=== PATIENT | female | born 1995 | race Caucasian/White ===

== ENCOUNTER 2023-05-10 20:55 | Inpatient (IN) | payer BC ==
[2023-05-10 22:07] VITALS: BMI 25.8
[2023-05-10 23:27] LABS: Hematocrit 39.2 % (34.9-44.5); Hemoglobin 13.3 g/dL (12.0-15.5); Mean Corpuscular HGB CONC 33.9 g/dL (32.0-36.0); Mean Corpuscular Hemoglobin 32.4 pg (27.0-33.0); Mean Corpuscular Volume 95.6 fl (81.6-98.3); Mean Platelet Volume 11.8 fl (7.4-10.4); Platelet Count 171 10x3/uL (150-450); RBC Distribution Width 12.9 % (11.5-14.5)
[2023-05-10 23:52] LABS: HBSAg Index 0.18 S/CO (0-0.99); Hep B Surf Ag - L&D Non-Reactive S/CO (NonReactive)
[2023-05-10 23:53] LABS: Syphilis Antibody Nonreactive (Nonreactive); Syphilis Antibody Index 0.03 S/CO (<1.00 Non-Reactive)
[2023-05-11] MEDS ORDERED: Lidocaine 1% (PF) 30 ML VIAL ONE (04:22)
[2023-05-11] MEDS ORDERED: Oxytocin 30 units/NS 500 ML 500 ML ONE (04:23)
[2023-05-11] MEDS ORDERED: Lidocaine 1% (PF) 30 ML VIAL SC PRN (04:45)
[2023-05-11] MEDS ORDERED: hydrALAZINE 20 MG/ML VIAL SLOW IVP PRN ×2 (04:45→09:07)
[2023-05-11] MEDS ORDERED: Ondansetron PF 4 MG/2 ML Vial IVP PRN (04:45)
[2023-05-11] MEDS ORDERED: Oxytocin 30 units/NS 500 ML 500 ML IVPB SCH (04:45)
[2023-05-11] MEDS ORDERED: Lactated Ringer's 1,000 ML IV SCH (04:45)
[2023-05-11] MEDS ORDERED: Promethazine HCl 25 MG/ML VIAL IM PRN (04:45)
[2023-05-11] MEDS ORDERED: Oxytocin 30 units/NS 500 ML 500 ML IV SCH ×2 (04:45→09:07)
[2023-05-11] MEDS ORDERED: Lanolin Ointment 7 GM TUBE TOP PRN (09:07)
[2023-05-11] MEDS ORDERED: Bisacodyl 10 MG SUPP PR PRN (09:07)
[2023-05-11] MEDS ORDERED: Milk Of Magnesia 30 ML UDCUP PO PRN (09:07)
[2023-05-11] MEDS ORDERED: Benzocaine-Menthol 82.5 ML CAN TOP PRN (09:07)
[2023-05-11] MEDS ORDERED: HYDROcodone/Acetaminophen 5/325 mg Tablet PO PRN ×2 (09:07)
[2023-05-11] MEDS ORDERED: Methylergonovine 0.2 MG/ML VIAL ONE (09:58)
[2023-05-11] MEDS ORDERED: Prenatal Vitamin 1 TAB PO SCH (10:30)
[2023-05-11] MEDS ORDERED: Docusate 100 MG CAP PO SCH (10:30)
[2023-05-11] MEDS ORDERED: Ferrous Sulfate 325 MG TAB PO SCH (10:30)
[2023-05-11 10:34] LABS: Platelet Count 144 10x3/uL (150-450)
[2023-05-11 10:35] LABS: #Eosinphils 0.1 10x3/uL (0.0-0.5); #Monocytes 1.9 10x3/uL (0.0-1.1); #Neutrophils 20.8 10x3/uL (1.5-8.4); %Basophils 0.2 % (0.0-2.0); %Eosinophils 0.3 % (0.0-6.0); %Lymphocytes 3.8 % (18.0-47.0); %Monocytes 7.8 % (0.0-10.0); %Neutrophils 87.3 % (40.0-75.0); Hematocrit 29.9 % (34.9-44.5); Hemoglobin 10.3 g/dL (12.0-15.5); Mean Corpuscular HGB CONC 34.4 g/dL (32.0-36.0); Mean Corpuscular Hemoglobin 33.1 pg (27.0-33.0); Mean Corpuscular Volume 96.1 fl (81.6-98.3); Mean Platelet Volume 12.2 fl (7.4-10.4); Platelet Count 142 10x3/uL (150-450); RBC Distribution Width 12.9 % (11.5-14.5); Red Blood Cell (RBC) Count 3.11 10x6/uL (3.90-5.03); White Blood Cell (WBC) Count 23.8 10x3/uL (3.5-10.5)
[2023-05-11 10:54] LABS: Fibrinogen 302 mg/dL (220-504); INR-International Normal Ratio 0.9; PTT 26.4 sec (22.0-33.0); Prothrombin Time 9.9 sec (9.5-12.1)
[2023-05-11 10:56] LABS: D-Dimer Test Greater than 35.20 mg/L FEU (0.19-0.50)
[2023-05-11 11:02] LABS: Band 8 % (5-11); Lymphocytes 5 % (21-51); Monocytes 4 % (0-10); Neutrophil 83 % (42-75)
[2023-05-11 11:03] LABS: Anisocytosis SLIGHT = 6-15 cells (100X) (0-5/hpf); Macrocytosis SLIGHT = 6-15 cells (100X) (0-5/hpf)
[2023-05-11 11:04] LABS: Hypochromia SLIGHT = 6-15 cells (100X) (0-5/hpf); Platelet Adequacy Comment Appears Adequate
[2023-05-11] MEDS: Ibuprofen 800 MG TAB PO SCH ×2 (11:36→17:43)
[2023-05-11] MEDS ORDERED: Boostrix 0.5 ML (Tdap) VIAL (>/=7 yrs of age) IM ONE (16:00)
[2023-05-11] MEDS: Ferrous Sulfate 325 MG TAB PO SCH (17:43)
[2023-05-11] MEDS: Docusate 100 MG CAP PO SCH (20:41)
[2023-05-12] MEDS: Ibuprofen 800 MG TAB PO SCH ×2 (01:05→09:18)
[2023-05-12 07:58] VITALS: BP 109/60; TEMP 98.3
[2023-05-12] MEDS ORDERED: Prenatal Vitamin 1 TAB PO SCH (09:00)
[2023-05-12] MEDS: Docusate 100 MG CAP PO SCH (09:18)
[2023-05-12] MEDS: Ferrous Sulfate 325 MG TAB PO SCH (09:18)
== END 2023-05-12 19:03 | disposition home or self-care (01) | DRG 807 ==
LOC: CSHLD/OP 20:55 → CSHLD 05-11 03:15 → CSHPP 05-11 11:55
PROVIDERS: ADMIT Obstetrics & Gynecology; ATTEND Obstetrics & Gynecology
PROC: 10E0XZZ Delivery of Products of Conception, External Approach (ICD-10-PCS; principal; 2023-05-11)
PROC: 0KQM0ZZ Repair Perineum Muscle, Open Approach (ICD-10-PCS; 2023-05-11)
DX: O42.02 Full-term premature rupture of membranes, onset of labor within 24 hours of rupture (principal); Z37.0 Single live birth; Z3A.40 40 weeks gestation of pregnancy; O48.0 Post-term pregnancy; O70.1 Second degree perineal laceration during delivery
CPT/HCPCS: 36415; 85025; 85027; 85049; 85300; 85362; 85379; 85384; 85610; 85730; 86780; 86850; 86900; 86901; 87340; J2001

== ENCOUNTER 2025-04-10 00:08 | Inpatient (IN) | payer OTHER ==
[2025-04-10 00:39] VITALS: BMI 23.8
[2025-04-10] MEDS ORDERED: HYDROcodone/Acetaminophen 5/325 mg Tablet PO PRN ×4 (03:16→05:32)
[2025-04-10] MEDS ORDERED: hydrALAZINE 20 MG/ML VIAL SLOW IVP PRN ×2 (03:16→05:32)
[2025-04-10] MEDS ORDERED: Ondansetron PF 4 MG/2 ML Vial IVP PRN (03:16)
[2025-04-10] MEDS ORDERED: Lidocaine 1% (PF) 30 ML VIAL SC PRN (03:16)
[2025-04-10 03:28] LABS: Hematocrit 36.3 % (34.9-44.5); Hemoglobin 12.2 g/dL (12.0-15.5); Mean Corpuscular Hemoglobin 31.4 pg (27.0-33.0); Mean Corpuscular Volume 93.6 fL (81.6-98.3); Platelet Count 187 10x3/uL (150-450); Red Blood Cell (RBC) Count 3.88 10x6/uL (3.90-5.03); White Blood Cell (WBC) Count 13.46 10x3/uL (3.5-10.5)
[2025-04-10 03:56] LABS: Hep B Surf Ag - L&D Non-Reactive S/CO (NonReactive)
[2025-04-10 03:58] LABS: Syphilis Antibody Index 0.08 S/CO (<1.00 Non-Reactive)
[2025-04-10] MEDS: Oxytocin 30 units/NS 500 ML 500 ML IV SCH (04:23)
[2025-04-10] MEDS: Ibuprofen 800 MG TAB PO PRN (04:28)
[2025-04-10] MEDS: Methylergonovine 0.2 MG/ML VIAL ONE (04:44)
[2025-04-10] MEDS: Tranexamic Acid 1,000 MG/10 ML VIAL ONE (04:53)
[2025-04-10] MEDS ORDERED: Methylergonovine 0.2 MG/ML VIAL IM SCH (05:15)
[2025-04-10] MEDS ORDERED: Milk Of Magnesia 30 ML UDCUP PO PRN (05:32)
[2025-04-10] MEDS ORDERED: Methylergonovine 0.2 MG/ML VIAL IM PRN (05:32)
[2025-04-10] MEDS ORDERED: Benzocaine-Menthol 82.5 ML CAN TOP PRN (05:32)
[2025-04-10] MEDS ORDERED: Bisacodyl 10 MG SUPP PR PRN (05:32)
[2025-04-10 05:37] LABS: #Basophils 0.03 10x3/uL (0.0-0.2); #Eosinophils Less than 0.03 10x3/uL (0.0-0.5); #Monocytes 0.64 10x3/uL (0.0-1.1); #Neutrophils 13.44 10x3/uL (1.5-8.4); %Basophils 0.2 % (0.0-2.0); %Eosinophils 0.1 % (0.0-6.0); %Lymphocytes 5.9 % (18.0-47.0); %Monocytes 4.2 % (0.0-10.0); %Neutrophils 88.9 % (40.0-75.0); Hematocrit 33.1 % (34.9-44.5); Hemoglobin 11.3 g/dL (12.0-15.5); Mean Corpuscular Hemoglobin 31.5 pg (27.0-33.0); Mean Corpuscular Volume 92.2 fL (81.6-98.3); Platelet Count 168 10x3/uL (150-450); Red Blood Cell (RBC) Count 3.59 10x6/uL (3.90-5.03); White Blood Cell (WBC) Count 15.11 10x3/uL (3.5-10.5)
[2025-04-10] MEDS ORDERED: Ibuprofen 800 MG TAB PO SCH (06:00)
[2025-04-10 06:04] LABS: D-Dimer Test 11.24 mcg/mL (0.19-0.50); Fibrinogen 275.0 mg/dL (220-504); INR-International Normal Ratio 0.9; PTT 33.5 sec (22.0-33.0); Prothrombin Time 10.1 sec (9.5-12.1)
[2025-04-10 06:15] LABS: Platelet Count 168.0 10x3/uL (130-400)
[2025-04-10] MEDS: Ferrous Sulfate 325 MG TAB PO SCH (14:02)
[2025-04-10] MEDS: Ibuprofen 800 MG TAB PO SCH ×2 (14:18→21:14)
[2025-04-10] MEDS: diphenhydrAMINE 25 MG CAP PO PRN (21:35)
[2025-04-11 08:38] VITALS: BP 102/60; TEMP 97.9
== END 2025-04-11 11:44 | disposition home or self-care (01) | DRG 807 ==
LOC: CSHLD/OP 00:08 → CSHLD 03:03 → CSHPP 08:30
PROVIDERS: ADMIT Obstetrics & Gynecology; ATTEND Obstetrics & Gynecology
PROC: 10E0XZZ Delivery of Products of Conception, External Approach (ICD-10-PCS; principal; 2025-04-10)
PROC: 0HQ9XZZ Repair Perineum Skin, External Approach (ICD-10-PCS; 2025-04-10)
PROC: 4A1HXCZ Monitoring of Products of Conception, Cardiac Rate, External Approach (ICD-10-PCS; 2025-04-10)
DX: O70.0 First degree perineal laceration during delivery (principal); Z37.0 Single live birth; Z3A.40 40 weeks gestation of pregnancy
CPT/HCPCS: 85027; 85049; 85300; 85362; 85384; 85610; 85730; 86780; 86850; 86900; 86901; 87340; 99285; J2210; J2590